=== PATIENT | female | born 1945 | race Caucasian/White ===

== ENCOUNTER 2016-07-21 08:45 | Inpatient (IN) | payer MEDICARE, OTHER ==
[~2016-07-21] VITALS: Ht 160 cm; Wt 81.6 kg
[2016-07-21 10:21] LABS: HEMOGLOBIN 15.1 gm/dl (12.3-15.3); RED BLOOD COUNT 4.8 M/UL (4.00-5.10); WHITE BLOOD COUNT 16.6 K/UL (4.5-11.0)
[2016-07-21 11:01] LABS: BUN/CREATININE RATIO 17 (0-10)
[2016-07-21 18:15] LABS: CAMPYLOBACTER Not Detected (Negative); CLOSTRIDIUM DIFFICILE TOX A/B Not Detected (Negative); ENTEROAGGREGATIVE E.COLI (EAEC Not Detected (Negative); PLESIOMONAS SHIGELLOIDES Not Detected (Negative); SALMONELLA Not Detected (Negative); VIBRIO Not Detected (Negative); VIBRIO CHOLERAE Not Detected (Negative); YERSINIA ENTEROCOLITICA Not Detected (Negative)
[2016-07-21 18:16] LABS: ADENOVIRUS F 40/41 Not Detected (Negative); ASTROVIRUS Not Detected (Negative); CRYPTOSPORIDIUM Not Detected (Negative); E.COLI 0157 Not Detected (Negative); ENTAMOEBA HISTOLYTICA Not Detected (Negative); ENTEROPATHOGENIC E.COLI (EPEC) Not Detected (Negative); ENTEROTOXIGENIC E.COLI (ETEC) Not Detected (Negative); GIARDIA LAMBLIA Not Detected (Negative); NOROVIRUS GI/GII Not Detected (Negative); ROTOVIRUS A Not Detected (Negative); SAPOVIRUS Not Detected (Negative); SHIG/ENTEROINVAS.ECOLI (EIEC) Not Detected (Negative); SHIGA-LIK TOX.PRO.E.COLI (STEC Not Detected (Negative)
[2016-07-21] MEDS ORDERED: LIPITOR TAB 1010 MG PO (20:24)
[2016-07-21] MEDS ORDERED: GLUCOPHAGE 500500 MG PO (20:24)
[2016-07-22 05:52] LABS: HEMOGLOBIN 12.7 gm/dl (12.3-15.3); RED BLOOD COUNT 4.04 M/UL (4.00-5.10); WHITE BLOOD COUNT 9.7 K/UL (4.5-11.0)
[2016-07-22 06:13] LABS: BUN/CREATININE RATIO 16 (0-10)
[2016-07-23] MEDS ORDERED: FLAGYL500 MG PO (16:18)
[2016-07-23] MEDS ORDERED: CIPRO500 MG PO (16:18)
[2016-07-23] MEDS ORDERED: PROTONIX40 MG PO (16:20)
[2016-07-23] MEDS ORDERED: ACIDOPHILUS LA1 EACH PO (16:20)
== END 2016-07-23 17:55 | disposition home or self-care (01) | DRG 395 ==
LOC: ER1 08:45 → ZEROF 15:27 → M/S 20:10
PROVIDERS: Preventive Medicine Occupational Medicine; ADMIT Family Medicine
DX: K62.89 Other specified diseases of anus and rectum (principal); K52.9 Noninfective gastroenteritis and colitis, unspecified; E11.9 Type 2 diabetes mellitus without complications; E78.5 Hyperlipidemia, unspecified; E66.9 Obesity, unspecified; K57.30 Diverticulosis of large intestine without perforation or abscess without bleeding; Z79.84 Long term (current) use of oral hypoglycemic drugs; Z68.31 Body mass index [BMI] 31.0-31.9, adult
CPT/HCPCS: 36415; 74000; 80048; 80053; 81001; 82962; 83735; 85025; 86140; 87507; 89055; 96374; 96375; 96376; 99285; J1956; J2405; J2550; J7030; J7050; Q9962

== ENCOUNTER 2020-12-21 17:49 | Emergency (ER) | payer MEDICARE, OTHER ==
[~2020-12-21] VITALS: Ht 160 cm; Wt 81.6 kg
[~2020-12-21 17:49] MED LIST: ACIDOPHILUS LA1 EACH PO; CIPRO500 MG PO; FLAGYL500 MG PO; GLUCOPHAGE 500500 MG PO; LEVAQUIN500 MG PO; LIPITOR TAB 1010 MG PO; PROTONIX40 MG PO
== END 2020-12-21 21:45 | disposition home or self-care (01) ==
LOC: ER1 17:49
DX: U07.1 COVID-19 (principal); Z23 Encounter for immunization; E10.9 Type 1 diabetes mellitus without complications; I10 Essential (primary) hypertension; Z90.89 Acquired absence of other organs
CPT/HCPCS: 87081; 87880; 99283; J0696; M0243